=== PATIENT | female | born 1940 | race Caucasian/White ===

== ENCOUNTER → 2017-03-27 | Day surgery (SDC) | payer MEDICARE, OTHER ==
--- NOTE | 2017-03-27 09:11 | MMO ---
STEREOTACTIC BIOPSY LEFT BREAST MICROCALCIFICATIONS WITH CLIP PLACEMENT SURGICAL SPECIMEN MAMMOGRAPHY LEFT DIAGNOSTIC MAMMOGRAM POST BIOPSY: Date: 03/27/17 HISTORY: Abnormal mammogram. Suspicious microcalcifications left breast. FINDINGS: After explaining the procedure and answering all questions, the cluster of indeterminate microcalcif ications at the central inferior aspect of the left breast were visualized. Sterile technique, local anesthesia, lateral approach, and stereotactic guidance were used to carefully advance the tip of a 10 gauge vacuum-assisted biopsy needle into the cluster of microcalcifications. Position was confir med with stereotactic imaging. Twelve vacuum-assisted specimens were obtained without difficulty and eventually submitted to pathology. Localization clip was placed in the biopsy bed. Surgical specimen mammography shows faint microcalcifications in the tissue that was obtained. Needl e was removed. The patient tolerated the procedure well and was eventually discharged in good condit ion. Postprocedure diagnostic left mammogram shows localization clip in the biopsy bed. The cluster of mi crocalcifications is no longer apparent. IMPRESSION: Technically successful stereotactic guided biopsy left breast microcalcifications. Pathology is pend ing. POS: [facility]
== END ==
LOC: MAMMO 06:54 → EDBD 07:00
PROVIDERS: ATTEND Surgery
DX: R92.8 Other abnormal and inconclusive findings on diagnostic imaging of breast (principal)
CPT/HCPCS: 19081; 76098; 88305; 89060; G0206

== ENCOUNTER 2020-03-26 14:50 | Emergency (ER) | payer MEDICARE, OTHER ==
[2020-03-26 15:24] LABS: #Eosinphils 0.3 thou/uL (0.0-0.7); #Lymphocytes 1.2 thou/uL (1.20-3.40); #Monocytes 0.5 thou/uL (0.11-0.59); #Neutrophils 4.3 thou/uL (1.40-6.50); %Basophils 0.1 % (0.0-1.0); %Eosinophils 5.3 % (0.0-10.0); %Lymphocytes 18.5 % (21.0-51.0); %Monocytes 7.7 % (0.0-10.0); %Neutrophils 68.4 % (42.0-75.0); Hemoglobin 13.7 g/dL (12.0-16.0); Mean Corpuscular HGB CONC 33.3 g/dL (32.0-36.0); Mean Corpuscular Hemoglobin 27.6 pg (27.0-31.0); Mean Platelet Volume 8.6 fL (7.4-10.4); Platelet Count 177 thou/uL (130-400); RBC Distribution Width 15.5 % (11.5-14.5); Red Blood Cell (RBC) Count 4.96 mill/uL (4.20-5.40); White Blood Cell (WBC) Count 6.3 thou/uL (4.8-10.8)
[2020-03-26 15:45] LABS: ALT (SGPT) 17 U/L (8-55); AST (SGOT) 18 U/L (5-34); Albumin 4.3 g/dL (3.4-4.8); Alkaline Phosphatase 138 U/L (40-110); Anion Gap 15 mmol/L (10-20); BUN (Urea Nitrogen) 15 mg/dL (9.8-20.1); Bilirubin, Total 0.6 mg/dL (0.2-1.2); Calc. Creatinine Clearance 0 mL/min (70-130); Calcium 10.2 mg/dL (7.8-10.44); Carbon Dioxide 23 mmol/L (23-31); Chloride 105 mmol/L (98-107); Estimated GFR-MDRD 53; Globulin 2.8 g/dL (2.4-3.5); Glucose 110 mg/dL (83-110); Protein, Total 7.1 g/dL (6.0-8.3); Sodium 139 mmol/L (136-145)
--- NOTE | 2020-03-26 16:01 | RAD ---
Chest one view HISTORY: Dyspnea. FINDINGS: Cardiac silhouette is and enlarged. Pulmonary vasculature are unremarkable. Mediastinum is midline. No confluent airspace consolidation or evidence of pneumothorax. IMPRESSION : Cardiomegaly. No active cardiopulmonary abnormalities are otherwise demonstrated.
[2020-03-26] MEDS ORDERED: Atenolol 25 MG TAB PO SCH (18:15)
== END 2020-03-26 19:43 | disposition home or self-care (01) ==
LOC: ERS 14:50
DX: I48.91 Unspecified atrial fibrillation (principal); R60.0 Localized edema; J45.909 Unspecified asthma, uncomplicated; M10.9 Gout, unspecified; I10 Essential (primary) hypertension; Z79.899 Other long term (current) drug therapy
CPT/HCPCS: 36415; 71045; 80053; 83880; 84484; 85025; 93005; 96374